=== PATIENT | female | born 1990 | race Caucasian/White ===

== ENCOUNTER 2017-09-22 20:00 | Emergency (ER) | payer OTHER ==
[2017-09-22 20:05] VITALS: BP 137/96; PULSE 132; RESP 22; TEMP 98.1; O2SAT 98
--- NOTE | 2017-09-22 22:09 | RADRPT ---
EXAM DATE/TIME: 09/22/2017 21:23 [facility] COMPARISON: No previous studies available for comparison. INDICATIONS : Distal right hand lacerations from a dog bite tonight. MEDICAL HISTORY : None. SURGICAL HISTORY : None. ENCOUNTER: Initial ACUITY: 1 day PAIN SCORE: 6/10 LOCATION: Right distal hand. FINDINGS: Three view examination of the right hand demonstrates no soft tissue swelling, dislocation, or fractu re. No radiopaque foreign bodies noted. The carpal bones appear intact. The interphalangeal and met acarpophalangeal joints are intact. Bony mineralization is normal. CONCLUSION: No acute disease. John Cabrera MD on September 22, 2017 at 22:06 Board Certified Radiologist. This report was verified electronically.
--- NOTE | 2017-09-22 22:10 | RADRPT ---
EXAM DATE/TIME: 09/22/2017 21:28 [facility] COMPARISON: No previous studies available for comparison. INDICATIONS : Distal left hand lacerations from dog bite tonight. MEDICAL HISTORY : None. SURGICAL HISTORY : None. ENCOUNTER: Initial ACUITY: 1 day PAIN SCORE: 6/10 LOCATION: Left distal hand. FINDINGS: Three view examination of the left hand demonstrates no soft tissue swelling, dislocation, or fractur e. No radiopaque foreign body is noted. The carpal bones appear intact. Small subchondral cyst is noted within the proximal pole of the scaphoid. The interphalangeal and metacarpophalangeal joints ar e intact. Bony mineralization is normal. CONCLUSION: 1. No acute fracture, dislocation or radiopaque foreign body. 2. Small subchondral cyst involving the proximal pole of the scaphoid. John Cabrera MD on September 22, 2017 at 22:07 Board Certified Radiologist. This report was verified electronically.
[2017-09-22] MEDS ORDERED: AMOXICILLIN/CLAVULANATE K 875 MG TAB PO ONE (22:30)
[2017-09-22] MEDS ORDERED: TETANUS/DIPHTHERIA TOXOID ADULT 0.5 ML VIAL IM ONE (22:30)
[2017-09-22] MEDS ORDERED: ACETAMINOPHEN/HYDROcodone 325 MG/5 MG TAB PO ONE (22:30)
[2017-09-22] MEDS ORDERED: AUGM875T3 PO (22:40)
[2017-09-22] MEDS ORDERED: TRAM50 PO (22:40)
[2017-09-22] MEDS ORDERED: MOBI15TA PO (22:40)
--- NOTE | 2017-09-22 22:41 | PD ---
HPI Chief Complaint: Bite or Sting Time Seen by Provider: 22:23 Travel History International Travel<30 days: No Contact w/Intl Traveler<30days: No Traveled to known affect area: No History of Present Illness HPI 27 years old female complains of dog bite to both hands. Patient tried to break up a dogfight and her own dog bit her on both hands. Patient complains of sharp severe pain localized to the fingers. Patient denies any pain radiation. Patient is not up-to-date with TD booster. PFSH Past Medical History Medical History: Denies Significant Hx ?: Not LMP: 08/31/2017 Past Surgical History Surgical History: No Previous Surgery Social History Alcohol Use: Yes Tobacco Use: Yes Allergies-Medications (Allergen,Severity, Reaction): Coded Allergies: No Known Allergies (Unverified , 09/22/17) Reported Meds & Prescriptions Reported Meds & Active Scripts Active No Active Prescriptions or Reported Medications Review of Systems General / Constitutional: No: Fever Eyes: No: Visual changes HENT: No: Headaches Cardiovascular: No: Chest Pain or Discomfort Respiratory: No: Shortness of Breath Gastrointestinal: No: Abdominal Pain Genitourinary: No: Dysuria Musculoskeletal: Positive: Pain Skin: No Rash Neurologic: No: Weakness Psychiatric: No: Depression Endocrine: No: Polydipsia Hematologic/Lymphatic: No: Easy Bruising Physical Exam Narrative GENERAL: Well-nourished, well-developed patient. SKIN: Focused skin assessment warm/dry. HEAD: Normocephalic. EYES: No scleral icterus. No injection or drainage. NECK: Supple, trachea midline. No JVD or lymphadenopathy. CARDIOVASCULAR: Regular rate and rhythm without murmurs, gallops, or rubs. RESPIRATORY: Breath sounds equal bilaterally. No accessory muscle use. GASTROINTESTINAL: Abdomen soft, non-tender, nondistended. MUSCULOSKELETAL: No cyanosis, or edema. BACK: Nontender without obvious deformity. No CVA tenderness. Patient has multiple superficial lacerations to left index finger and third finger and second third and fourth fingers of the right hand. Sensorimotor function distally intact. Data Data Last Documented VS Vital Signs Date Time Temp Pulse Resp B/P (MAP) Pulse Ox O2 Delivery O2 Flow Rate FiO2 09/22/17 20:05 98.1 132 22 137/96 (110) 98 Room Air Orders Orders Hand, Complete ([id number]) (09/22/17 ) Hand, Complete ([id number]) (09/22/17 ) Tetanus/Diphtheria Tox Adult (Tetanus/Di (09/22/17 22:30) Amoxicil-Clavulanate (Augmentin) (09/22/17 22:30) Acetamin-Hydrocod 325-5 Mg ([place] 5-325 (09/22/17 22:30) MDM Medical Decision Making Medical Screen Exam Complete: Yes Emergency Medical Condition: Yes Differential Diagnosis Differential diagnosis including laceration, abrasions, fracture. Narrative Course 27 years old female with multiple dog bites to both hands examination reveals superficial lacerations to the fingers. Saline wash. Polysporin ointment with dressing. TD booster given. Augmentin 875 mg by mouth given. Lortab 5/325, one tablet by mouth given. Diagnosis Primary Impression: Hand laceration Qualified Codes: S61.419A - Laceration without foreign body of unspecified hand, initial encounter Additional Impression: Dog bite Qualified Codes: W54.0XXA - Bitten by dog, initial encounter Patient Instructions: General Instructions Additional Instructions: Wound care daily. Take medications as directed. Follow-up with personal physician. Return if increased redness swelling. Med/Other Pt SpecificInfo: Prescription(s) given Scripts Tramadol (Ultram) 50 Mg Tab 50 MG PO Q6H Y for PAIN, #20 TAB 0 Refills Prov: David Arceo MD 09/22/17 Meloxicam (Mobic) 15 Mg Tab 15 MG PO DAILY for Pain, #20 TAB 0 Refills Prov: David Arceo MD 09/22/17 Amoxicillin-Clavulanate (Augmentin) 875-125 Mg Tab 1 TAB PO BID for Infection, #20 TAB 0 Refills Prov: David Arceo MD 09/22/17 Disposition: 01 DISCHARGE HOME Condition: Stable David Arceo MD Sep 22, 2017 22:40
== END 2017-09-22 23:58 | disposition home or self-care (01) ==
LOC: NEPD 20:00
DX: S61.451A Open bite of right hand, initial encounter (principal); S61.452A Open bite of left hand, initial encounter; W54.0XXA Bitten by dog, initial encounter; Z23 Encounter for immunization
CPT/HCPCS: 73130; 90471; 90714